=== PATIENT | male | born 1965 | race African-American/Black ===

== ENCOUNTER 2017-05-25 17:57 | Emergency (ER) | payer MEDICAID, OTHER ==
[~2017-05-25] VITALS: Ht 167.6 cm; Wt 66.0 kg
[2017-05-25] MEDS ORDERED: BACITRACIN ZINC OINT UDPKT TOP ONE (21:00)
[2017-05-25] MEDS ORDERED: MORPHINE SULFATE 10 MG/ML CPJ IM ONE (21:00)
[2017-05-25] MEDS ORDERED: TETANUS, DIPHTHERIA, PERTUSSIS VAC/PF 0.5ML (>7YR OLD) IM ONE (21:00)
[2017-05-25] MEDS ORDERED: KETOROLAC 30MG/ML VIAL IM ONE (21:00)
[2017-05-25 23:58] VITALS: BP 129/88
== END 2017-05-25 23:58 | disposition home or self-care (01) ==
LOC: ER 17:57
DX: S70.00XA Contusion of unspecified hip, initial encounter (principal); F17.200 Nicotine dependence, unspecified, uncomplicated; F12.10 Cannabis abuse, uncomplicated; V29.9XXA Motorcycle rider (driver) (passenger) injured in unspecified traffic accident, initial encounter; Y93.55 Activity, bike riding; Y92.89 Other specified places as the place of occurrence of the external cause; Y99.8 Other external cause status
CPT/HCPCS: 71010; 72170; 73560; 90471; 90715; 96375; 99284; J1885; J2270; X7700; Z7610